=== PATIENT | female | born 1975 | race Hispanic/Latino ===

== ENCOUNTER 2024-06-27 07:37 | Outpatient (CLI) | payer BC | END 2024-06-27 07:38 | disposition home or self-care (01) | LOC: BICMAMMO 07:37 | PROVIDERS: ATTEND Nurse Practitioner Family | DX: R92.8 Other abnormal and inconclusive findings on diagnostic imaging of breast (principal); N64.89 Other specified disorders of breast | CPT/HCPCS: G0279 ==